=== PATIENT | male | born 1950 | race Caucasian/White ===

== ENCOUNTER → 2021-03-30 | Outpatient (CLI) | payer MEDICARE ==
--- NOTE | 2021-03-30 09:37 | CT ---
EXAMINATION TYPE: CT angio chest DATE OF EXAM: 03/30/2021 9:14 AM COMPARISON: None. HISTORY: thoracic aortic aneurysm CT DLP: 517.6 mGycm Automated exposure control for dose reduction was used. CONTRAST: CTA scan of the thorax is performed with IV Contrast, patient injected with 100 mL of Isovue 370, ane urysm protocol. 3D reconstructed images are created on an independent workstation and reviewed.. FINDINGS: LUNGS: The lungs are grossly clear, there is no concerning parenchymal mass or nodule identified. T here is no pleural effusion or pneumothorax seen. The tracheobronchial tree is patent. MEDIASTINUM: There is satisfactory enhancement of the central pulmonary arteries. Normal three-vessel origin from aortic arch. Mild fixed plaque in the descending thoracic aorta. Ascending aorta measure s up to 3.8 cm in diameter on coronal images. No linear hypodensity to suggest dissection. No aneury sm extension into the arch or descending aorta. There are prominent but subcentimeter bilateral hilar and mediastinal lymph nodes. No pericardial effusion is seen. Heart size upper limits of normal. OTHER: There is a partially exophytic 6.4 cm thin-walled cyst anteriorly from the upper pole left ki dney. There is 4.3 cm thin-walled cyst centrally midpole left kidney. Liver is diffusely low-density suggesting diffuse fatty infiltration. Slight scoliotic curvature with mild multilevel spurring in th e spine. IMPRESSION: Ectasia/borderline aneurysm of the ascending aorta up to 3.8 cm.
== END | disposition home or self-care (01) ==
LOC: RADCTMAIN 07:52
PROVIDERS: ATTEND Internal Medicine Interventional Cardiology
DX: I71.2 Thoracic aortic aneurysm, without rupture (principal)
CPT/HCPCS: 82565; 84520; 71275; 36415; Q9967

== ENCOUNTER → 2023-11-26 | Outpatient (CLI) | payer MEDICARE ==
[2023-11-26 15:49] LABS: African American GFR (CKD) >90 (>60 ml/min/1.73 sqM); Blood Urea Nitrogen 16 mg/dL (9-20); Non-African American GFR(CKD) 80 (>60 ml/min/1.73 sqM)
--- NOTE | 2023-11-26 20:12 | CT ---
EXAMINATION TYPE: CT angio chest DATE OF EXAM: 11/26/2023 5:32 PM COMPARISON: HISTORY: Ascending aortic aneurysm without rupture. CT DLP: 787 mGycm Automated exposure control for dose reduction was used. CONTRAST: CTA scan of the thorax is performed with IV Contrast, patient injected with 100 mL of Isovue 300, pul monary embolism protocol. 3-D postprocessing was performed.. FINDINGS: There is a 4 mm calcified granuloma in the right lung base otherwise no suspicious lung masses or nod ules. There is no air space consolidative density or abnormal interstitial density. There is no pleural effusion, pleural thickening or pneumothorax. There is aneurysmal dilatation of ascending thoracic aorta which measures 4.1 cm. There is no mediast inal, hilar or axillary adenopathy. There are no filling defects within the pulmonary arteries or segmental branches to suggest pulmonary embolism. Limited scanning through the upper abdomen reveals fatty liver and a large exophytic cyst of the ante rior left kidney. The osseous structures are intact.. IMPRESSION: 1. 4.1 cm ascending thoracic aortic aneurysm. 2. no evidence of pulmonary medicine. 3. No acute cardiopulmonary disease.
== END | disposition home or self-care (01) ==
LOC: RADCTMAIN 14:50
PROVIDERS: ATTEND Internal Medicine Interventional Cardiology
DX: I71.40 Abdominal aortic aneurysm, without rupture, unspecified (principal); I71.20 Thoracic aortic aneurysm, without rupture, unspecified
CPT/HCPCS: 82565; 84520; 71275; 36415; Q9967

== ENCOUNTER → 2024-04-23 | Outpatient (CLI) | payer MEDICARE ==
--- NOTE | 2024-04-23 09:12 | US ---
EXAMINATION TYPE: US Aorta Screening DATE OF EXAM: 04/23/2024 COMPARISON: NONE CLINICAL INDICATION: Male, 73 years old with history of Z13.6 SCREENING FOR CARDIOVASCULAR DISORDERS; AAA screening TECHNIQUE: Multiple sonographic images of the abdominal aorta are obtained. 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
== END | disposition home or self-care (01) ==
LOC: RADUSWWP 07:46
PROVIDERS: ATTEND Family Medicine
DX: Z13.6 Encounter for screening for cardiovascular disorders (principal)
CPT/HCPCS: 76706